=== PATIENT | female | born 1960 | race Caucasian/White ===

== ENCOUNTER 2019-09-09 09:30 | Emergency (ER) | payer BC ==
[2019-09-09] MEDS ORDERED: Sodium Chloride 0.9% 10 ML Syringe FLUSH PRN (09:48)
--- NOTE | 2019-09-09 10:11 | EDM.PDOC ---
ED HPI GENERAL MEDICAL PROBLEM - General Chief Complaint: Neuro Symptoms/Deficits Stated Complaint: MEMORY LOSS Time Seen by Provider: 09/09/19 10:00 Source of Information: Reports: Patient, Other () History Limitations: Reports: No Limitations - History of Present Illness INITIAL COMMENTS - FREE TEXT/NARRATIVE: Patient developed sudden memory loss of events that occurred yesterday and this morning, onset 0800 today after intercourse. She has no prior h/o CVA, TIA, CAD , or similar event. PMHx includes mitral valve repair and HTN. Patient denies headache, weakness, dizziness, chest pain, or SOB. Onset: Today, Sudden Onset Date: 09/09/19 Onset Time: 08:00 - Related Data Allergies Allergy/AdvReac Type Severity Reaction Status Date / Time No Known Allergies Allergy Verified 09/09/19 09:59 Home Meds: Home Meds Aspirin [Halfprin] 81 mg PO Q48H 09/09/19 [History] Cranberry Fruit Extract [Cranberry] 500 mg PO DAILY 09/09/19 [History] Multivitamin with Minerals [Multivitamins with Minerals] 1 tab PO DAILY [History] carvediloL [Carvedilol] 25 mg PO BID 09/09/19 [History] lisinopriL [Lisinopril] 20 mg PO DAILY 09/09/19 [History] Past Medical History Cardiovascular History: Reports: Hypertension, Other (See Below) (Mitral valve repair). Denies: CAD Neurological History: Denies: CVA, TIA Social & Family History - Tobacco Use Smoking Status *Q: Never Smoker - Caffeine Use Caffeine Use: Reports: None - Alcohol Use Alcohol Use History: Yes Alcohol Use Frequency: Rarely - Recreational Drug Use Recreational Drug Use: No ED ROS GENERAL - Review of Systems Review Of Systems: Comprehensive ROS is negative, except as noted in HPI. ED EXAM, NEURO - Physical Exam Exam: See Below Exam Limited By: No Limitations General Appearance: Alert, WD/WN, No Apparent Distress Eye Exam: Bilateral Eye: EOMI, PERRL Nose: Normal Inspection Throat/Mouth: No Airway Compromise Head Exam: Atraumatic, Normocephalic Neck: Supple, Full Range of Motion Respiratory/Chest: No Respiratory Distress, Lungs Clear, Normal Breath Sounds Neurological: Alert, Normal Mood/Affect, CN II-XII Intact, No Motor/Sensory Deficits, Oriented x 3, Other (GCS=15, NIHSS=0) Extremities: Normal Range of Motion Psychiatric: Normal Affect, Normal Mood Skin Exam: Warm, Dry, Intact EKG INTERPRETATION EKG Date: 09/09/19 Time: 09:52 Rhythm: NSR Rate (Beats/Min): 77 [place]: Normal P-Wave: Present QRS: Other (LVH) ST-T: Other (secondary repolarization abnormality) QT: Normal Comparison: No Change (04/25/19) Course - Vital Signs Last Recorded V/S: Last Vital Signs Temp 36.4 C 09/09/19 09:59 Pulse 74 09/09/19 09:59 Resp 16 09/09/19 09:59 BP 173/92 H 09/09/19 09:59 Pulse Ox 100 09/09/19 09:59 - Orders/Labs/Meds Orders: Active Orders 24 hr Category Date Time Status EKG Documentation Completion [RC] ASDIRECTED Care 09/09/19 09:48 Active Head wo Cont [CT] Stat Exams 09/09/19 09:49 Taken Sodium Chloride 0.9% [Saline Flush] Med 09/09/19 09:48 Active 10 ml FLUSH ASDIRECTED PRN Saline Lock Insert [OM.PC] Routine Oth 09/09/19 09:48 Ordered EKG 12 Lead [EK] Stat Ther 09/09/19 09:47 Ordered Medication Orders Sodium Chloride (Saline Flush) 10 ml FLUSH ASDIRECTED PRN PRN Reason: Keep Vein Open Labs: Laboratory Tests 09/09/19 09/09/19 09/09/19 Range/Units 09:55 09:55 09:55 WBC 5.7 (4.5-12.0) X10-3/uL RBC 4.75 (3.23-5.20) x10(6)uL Hgb 14.6 (11.5-15.5) g/dL Hct 43.3 (30.0-51.3) % MCV 91.2 (80-96) fL MCH 30.8 (27.7-33.6) pg MCHC 33.8 (32.2-35.4) g/dL RDW 13.0 (11.5-15.5) % Plt Count 191 (125-369) X10(3)uL MPV 9.2 (7.4-10.4) fL Neut % (Auto) 58.9 (46-82) % Lymph % (Auto) 29.0 (13-37) % [place] % (Auto) 8.4 (4-12) % Eos % (Auto) 2 (1.0-5.0) % Baso % (Auto) 1 (0-2) % Neut # (Auto) 3.4 (1.6-8.3) # Lymph # (Auto) 1.6 (0.6-5.0) # [place] # (Auto) 0.5 (0.0-1.3) # Eos # (Auto) 0.1 (0.0-0.8) # Baso # (Auto) 0.1 (0.0-0.2) # PT 10.6 (9.0-11.1) sec INR 0.98 L (1.00-1.24) APTT 26.6 (24.4-33.2) SECONDS Sodium 141 (135-145) mmol/L Potassium 4.0 (3.5-5.3) mmol/L Chloride 107 (100-110) mmol/L Carbon Dioxide 30 (21-32) mmol/L BUN 15 (7-18) mg/dL Creatinine 0.9 (0.55-1.02) mg/dL Est Cr Clr Drug Dosing TNP Estimated GFR (MDRD) > 60 (>60) BUN/Creatinine Ratio 16.7 (9-20) Glucose 115 (80-116) mg/dL Calcium 9.3 (8.6-10.2) mg/dL Magnesium 2.0 (1.8-2.5) mg/dL Total Bilirubin 0.5 (0.1-1.3) mg/dL AST 21 (5-25) IU/L ALT 23 (12-36) U/L Alkaline Phosphatase 87 (56-112) IU/L Troponin I (4.0-60.3) pg/mL Total Protein 7.9 (6.0-8.0) g/dL Albumin 3.8 (3.5-5.2) g/dL Globulin 4.1 g/dL Albumin/Globulin Ratio 0.9 Urine Color (YELLOW) Urine Appearance (CLEAR) Urine pH (5.0-6.5) Ur Specific [place] (1.010-1.025) Urine Protein (NEGATIVE) mg/dL Urine Glucose (UA) (NORMAL) mg/dL Urine Ketones (NEGATIVE) mg/dL Urine Occult Blood (NEGATIVE) Urine Nitrite (NEGATIVE) Urine Bilirubin (NEGATIVE) Urine Urobilinogen (NEGATIVE) mg/dL Ur Leukocyte Esterase (NEGATIVE) Urine RBC (0-5) Urine WBC (0-5) Ur Squamous Epith Cells (NS,R,O) Urine Bacteria (NS) 09/09/19 09/09/19 Range/Units 09:55 10:34 WBC (4.5-12.0) X10-3/uL RBC (3.23-5.20) x10(6)uL Hgb (11.5-15.5) g/dL Hct (30.0-51.3) % MCV (80-96) fL MCH (27.7-33.6) pg MCHC (32.2-35.4) g/dL RDW (11.5-15.5) % Plt Count (125-369) X10(3)uL MPV (7.4-10.4) fL Neut % (Auto) (46-82) % Lymph % (Auto) (13-37) % [place] % (Auto) (4-12) % Eos % (Auto) (1.0-5.0) % Baso % (Auto) (0-2) % Neut # (Auto) (1.6-8.3) # Lymph # (Auto) (0.6-5.0) # [place] # (Auto) (0.0-1.3) # Eos # (Auto) (0.0-0.8) # Baso # (Auto) (0.0-0.2) # PT (9.0-11.1) sec INR (1.00-1.24) APTT (24.4-33.2) SECONDS Sodium (135-145) mmol/L Potassium (3.5-5.3) mmol/L Chloride (100-110) mmol/L Carbon Dioxide (21-32) mmol/L BUN (7-18) mg/dL Creatinine (0.55-1.02) mg/dL Est Cr Clr Drug Dosing Estimated GFR (MDRD) (>60) BUN/Creatinine Ratio (9-20) Glucose (80-116) mg/dL Calcium (8.6-10.2) mg/dL Magnesium (1.8-2.5) mg/dL Total Bilirubin (0.1-1.3) mg/dL AST (5-25) IU/L ALT (12-36) U/L Alkaline Phosphatase (56-112) IU/L Troponin I 10.9 (4.0-60.3) pg/mL Total Protein (6.0-8.0) g/dL Albumin (3.5-5.2) g/dL Globulin g/dL Albumin/Globulin Ratio Urine Color Yellow (YELLOW) Urine Appearance Clear (CLEAR) Urine pH 6.5 (5.0-6.5) Ur Specific [place] 1.010 (1.010-1.025) Urine Protein Negative (NEGATIVE) mg/dL Urine Glucose (UA) Normal (NORMAL) mg/dL Urine Ketones Negative (NEGATIVE) mg/dL Urine Occult Blood Moderate H (NEGATIVE) Urine Nitrite Negative (NEGATIVE) Urine Bilirubin Negative (NEGATIVE) Urine Urobilinogen Normal (NEGATIVE) mg/dL Ur Leukocyte Esterase Negative (NEGATIVE) Urine RBC 0-5 (0-5) Urine WBC 0-5 (0-5) Ur Squamous Epith Cells Occasional (NS,R,O) Urine Bacteria Occasional H (NS) Meds: Medications Generic Name Dose Route Start Last Admin Trade Name Freq PRN Reason Stop Dose Admin Sodium Chloride 10 ml 09/09/19 09:48 Saline Flush FLUSH ASDIRECTED PRN Keep Vein Open - Radiology Interpretation Free Text/Narrative:: Patient Name: JASON ROTH Date of : 1960 Procedure: CT HEAD WITHOUT CONTRAST Date of Service: 09/09/2019 EXAM: CT HEAD WITHOUT CONTRAST INDICATION: ICD-10 G45.4 Transient global amnesia Transient global amnesia TECHNIQUE: Nonenhanced axial images of the brain were obtained. Coronal and sagittal reconstruction images were obtained. COMPARISON(S): 04/28/2019 FINDINGS: There is no evidence of intracranial hemorrhage or major vessel territory infarct. There is no mass, mass effect, midline shift, or herniation. There are no extraaxial fluid collections. The brain volume is normal for age. There is minor mucosal thickening in the left maxillary sinus. IMPRESSION: 1. No acute intracranial abnormality. No etiology for amnesia appreciated. If there is is ongoing concern MRI evaluation could be considered. 2. Minor mucosal thickening in the left maxillary sinus in keeping with minimal inflammatory sinus disease which is felt to be of doubtful clinical significance. Finalized by: Jet Alonso MD on 09/09/2019 10:44 AM CDT Patient/Procedure Information: [facility] OUT[facility] MRN/DAMON: [id number]/ Order Number: [id number] Accession Number: [id number] - Re-Assessments/Exams Free Text/Narrative Re-Assessment/Exam: 09/09/19 10:53 Amnesia has resolved, memory of recent events intact, confirms. 09/09/19 11:16 Dr. Patel ([facility] Neurologist) consulted, recommends outpatient MRI Brain on 09/11/19. 09/09/19 11:47 Unable to schedule an MRI at [facility] until 09/14/19. Departure - Departure Time of Disposition: 11:49 Disposition: Home, Self-Care 01 Condition: Good Clinical Impression: TGA (transient global amnesia) - Discharge Information *PRESCRIPTION DRUG MONITORING PROGRAM REVIEWED*: No *COPY OF PRESCRIPTION DRUG MONITORING REPORT IN PATIENT SONJA: Not Applicable Instructions: Transient Global Amnesia Referrals: Shayy Shaffer PA [Primary Care Provider] - 3 Days Forms: ED Department Discharge Additional Instructions: Follow up @[facility] radiology on 09/11/19 for an MRI brain. Avoid strenuous activity. Continue current medications. Return to the ER if symptoms recur or worsen. Sepsis Event Note - Evaluation Sepsis Screening Result: No Definite Risk - Focused Exam Vital Signs: Vital Signs Temp Pulse Resp BP Pulse Ox 09/09/19 09:59 36.4 C 74 16 173/92 H 100 Date Exam was Performed: 09/09/19 Time Exam was Performed: 11:47 - My Orders Last 24 Hours: My Active Orders 09/09/19 09:47 EKG 12 Lead [EK] Stat 09/09/19 09:48 EKG Documentation Completion [RC] ASDIRECTED Sodium Chloride 0.9% [Saline Flush] 10 ml FLUSH ASDIRECTED PRN Saline Lock Insert [OM.PC] Routine 09/09/19 09:49 Head wo Cont [CT] Stat - Assessment/Plan Last 24 Hours: My Active Orders 09/09/19 09:47 EKG 12 Lead [EK] Stat 09/09/19 09:48 EKG Documentation Completion [RC] ASDIRECTED Sodium Chloride 0.9% [Saline Flush] 10 ml FLUSH ASDIRECTED PRN Saline Lock Insert [OM.PC] Routine 09/09/19 09:49 Head wo Cont [CT] Stat
== END 2019-09-09 12:09 | disposition home or self-care (01) ==
LOC: FB.ED 09:30
DX: G45.4 Transient global amnesia (principal); I10 Essential (primary) hypertension; Z79.82 Long term (current) use of aspirin; Z79.899 Other long term (current) drug therapy
CPT/HCPCS: 36415; 70450; 80053; 81001; 83735; 84484; 85025; 85610; 85730; 93005; 99284-25